=== PATIENT | female | born 1975 | race Caucasian/White ===

== ENCOUNTER 2024-03-17 08:40 | Day surgery (SDC) | payer BC, SELFPAY ==
--- NOTE | 2024-03-14 10:09 | PCM.HP.BLA ---
History and Physical Date of Admission: 03/17/24 Expand All Collapse All Pre-Op History and Physical HPI: The patient is a 48 year old female presenting for pre-operative visit. She is scheduled for LAVH, for fibroids. on 03-17-2024. Procedure discussed along with risks, benefits and complications. Other alternatives discussed for management. Consent form signed? Yes. Started period earlier today. PAST MEDICAL HISTORY PAST MEDICAL HISTORY Diagnosis Date ? Abnormal glandular Papanicolaou smear of cervix abnormal glandular cells- D&C negative ? Asthma ? Bartholin cyst ? Benign neoplasm of colon next scope 2013- 2 polyps ? Circumscribed scleroderma lichens sclerosis ? Lichen sclerosus ? PONV (postoperative nausea and vomiting) ? Unspecified asthma(493.90) PAST SURGICAL HISTORY PAST SURGICAL HISTORY Procedure Laterality Date ? COLONOSCOPY FLX DX W/COLLJ SPEC WHEN PFRMD 11/01/2008 polyps ? DILATION & CURETTAGE DX&/THER NONOBSTETRIC Dilation & curettage x 2 ? PAST SURGICAL HISTORY OF 06/01/2014 Cervical polyp removal. Fractional dilation and curettage, endocervical curetting, and endometrial curetting. Excision of Bartholin cyst on the left. ? SKIN BIOPSY HX CURRENT MEDICATIONS Current Outpatient Medications Medication Sig Dispense Refill ? triamcinolone acetonide (KENALOG) 0.1 % ointment Apply to affected area as directed. pea-sized amount to vulva tid x 2 weeks then BID for 2 weeks then daily for a month then twice weekly 60 g 0 ? albuterol HFA (PROVENTIL HFA, VENTOLIN HFA) 90 mcg/actuation inhaler Inhale 2 Puffs as instructed every 4 hours as needed for wheezing/shortness of breath. 18 g 0 ? tranexamic acid (LYSTEDA) 650 mg tablet Take 2 tablets by mouth three times a day as needed (heavy menstrual bleeding) for up to 5 days. (Patient not taking: Reported on 03/13/2024) 30 tablet 0 No current facility-administered medications for this visit. ALLERGIES: Cats, Dogs, Dust, Iodine, Pantoprazole, Pollen, and Prilosec [Omeprazole Magnesium] PERSONAL HISTORY: SOCIAL HISTORY Social History Tobacco Use ? Smoking status: Never ? Smokeless tobacco: Never Vaping Use ? Vaping Use: Never used Substance Use Topics ? Alcohol use: Yes ? Drug use: No FAMILY HISTORY: FAMILY HISTORY FAMILY HISTORY Problem Relation Age of Onset ? Hypertension Father ? Arthritis Sister Rheumatoid arthritis ? Diabetes Maternal Grandmother REVIEW OF SYMPTOMS: negative except as noted above PHYSICAL EXAMINATION: VITALS: Blood pressure 106/72, pulse 76, resp. rate 16, height 5' 2.25 (1.581 m), weight 129 lb (58.5 kg), last menstrual period 03/13/2024. GENERAL: NECK: Supple. No lynphadenopathy, normal thyroid, no thyromegaly. LUNGS: Clear to auscultation bilaterally. no wheezes, rhonchi or rales HEART: Regular rate and rhythm, Normal heart sounds, and No murmurs or gallops pap and HPV 12/2023- neg EMB 02/15/24- secretory endometrium Pelvic US : Indication Abnormal uterine bleeding Impression anteverted, axial fibroid uterus that measures 94 mm x 70 mm x 69 mm. The largest fibroids are described below. fibroids appear to be intramural and not compressing into the endometrium. 1. Size 36 mm x 35 mm x 34 mm. Anterior, right 2. Size 18 mm x 14 mm x 17 mm. Posterior, left 3. Size 16 mm x 14 mm x 17 mm.. Right lateral anterior wall The central endometrium complex measures 15.9 mm in combined thickness. No abnormal blood flow to suggest a polyp or focal endometrial pathology is observed within the endometrial complex. The contour of the endometrial cavity was normal on 3-D imaging. Both ovaries appear normal no free fluid in the culdesac. Technique: Duplex scan was performed using B-Mode/sweeney scale imaging and Doppler spectral analysis and color flow. Recommendations Follow up as clinically indicated Menstrual History LMP on 01/21/2024 Method Transabdominal, transvaginal, 3D ultrasound examination, Color Doppler examination Uterus Uterus: Visualized Uterus position: anteverted, axial Uterus length 94 mm Uterus width 69 mm Uterus height 70 mm Uterus Vol 235.5 cm? Endometrial thickness, total 15.9 mm Uterine fibroid D1 36 mm Uterine fibroid D2 35 mm Uterine fibroid D3 34 mm Uterine fibroid mean 35.0 mm Uterine fibroid vol 22.431 cm? Uterine fibroids findings: Anterior, right Uterine fibroid D1 18 mm Uterine fibroid D2 14 mm Uterine fibroid D3 17 mm Uterine fibroid mean 16.3 mm Uterine fibroid vol 2.243 cm? Uterine fibroids findings: Posterior, left Uterine fibroid D1 16 mm Uterine fibroid D2 14 mm Uterine fibroid D3 17 mm Uterine fibroid mean 15.7 mm Uterine fibroid vol 1.994 cm? Uterine fibroids findings: Right lateral anterior wall Right Ovary Rt ovary: Visualized Rt ovary D1 31 mm Rt ovary D2 22 mm Rt ovary D3 14 mm Rt ovary Vol 4.7 cm? Left Ovary Lt ovary: Visualized Lt ovary D1 23 mm Lt ovary D2 23 mm Lt ovary D3 24 mm Lt ovary Vol 6.5 cm? Cul de Sac Visualized. no free fluid visualized IMPRESSION: menorrhagia, intramural uterine fibroids and dysmenorrhea PLAN: The risks/benefits/alternatives and personal involved for the planned LAVH with bilateral salpingectomy were reviewed with the patient. Her questions were answered to her satisfaction and she desires to proceed. Consent was signed. I reviewed with her postop instructions and expectations. I have reviewed and updated past medical and surgical history, medications and allergies Assessment & Plan Assessment/Plan (1) Menorrhagia: (2) Dysmenorrhea: (3) Intramural uterine fibroid:
[2024-03-15 13:54] LABS: Hematocrit 37.1 % (37-47); Hemoglobin 11.9 g/dL (12.0-15.0); Mean Corp Hgb Conc 32.1 g/dL (32-36); Mean Corpuscular Hgb 26.3 pg (27.0-32.0); Mean Corpuscular Volume 82.1 fL (81-99); Mean Platelet Vol. 10.1 fl (6.2-12.0); Platelet Count 255 K/mm3 (150-450); RBC Distribution Width CV 14.1 % (11.6-14.6); RBC Distribution Width SD 41.9 fl (35.1-43.9); Red Blood Count 4.52 M/mm3 (4.2-5.4); White Blood Count 6.9 K/mm3 (4.4-11.0)
[2024-03-15 14:14] LABS: Magnesium 2.2 mg/dL (1.6-2.6)
[2024-03-17] VITALS (9 sets, daily range): BP systolic 91–127; BP diastolic 52–87; PULSE 59–78; RESP 14–16; TEMP 36.3–37.2; O2SAT 98–100; BMI 23.9
[2024-03-17] MEDS: Lactated Ringers 1,000 ML 40 ML IV (09:10)
[2024-03-17] MEDS: Magnesium 1 GM over 15 mins IV (09:10)
[2024-03-17] MEDS: Enoxaparin 40 MG/0.4 ML Syringe SC (09:10)
[2024-03-17] MEDS: Scopolamine 1mg/72hr Patch 1 PATCH TD (09:10)
[2024-03-17] MEDS: Acetaminophen 500 MG Tablet 1000 MG PO (09:11)
[2024-03-17] MEDS: Gabapentin 600 MG Tablet PO (09:11)
[2024-03-17] MEDS: Phenazopyridine 95 MG Tablet 190 MG PO (09:12)
[2024-03-17] MEDS: Celecoxib 200 MG Capsule 400 MG PO (09:12)
[2024-03-17 09:50] LABS: Internal QC Validated? YES +Cl - CLEAR BKGD; Pregnancy, Urine Negative Negative; Record Kit Lot#,Urine Preg HCG0000718089
[2024-03-17 10:04] LABS: Bedside Glucose 77 mg/dL (74-106)
--- NOTE | 2024-03-17 10:30 | HYST_PTH ---
PATIENT: NICOLLE OLIVIA [place] [facility] [id number] AGE/SX: 48/F ROOM: RE03/17/[address]: Dr. Magi Zimmer MD : [id number] BED: DIS: 03/17/2024 SPEC #: [id number] RECD: 03/17/24 13:51 STATUS: KELSEY HOPE #: [id number] DANIELLE: 03/17/24 10:[address]: Magi Zimmer DEPT: SURGICAL PATHOLOGY RECD BY: Latosha Macario ENTERED: 03/20/24 08:53 SP TYPE: HYSTERECT OTHR DR: No Primary Care Phys Tissues: Uterus, NOS Procedures: Surgery Specimen Level V HEADER OPERATION: ERAS, hysterectomy, LAVH, bilateral salpingectomy PRE-OP DIAGNOSIS: Menorrhagia, dysmenorrhea, intramural uterine fibroid TISSUE SUBMITTED: Uterus, bilateral fallopian tubes MICROSCOPIC DIAGNOSIS Uterus, hysterectomy: Cervix - Nabothian cysts and minimal chronic inflammation Endometrium - Secretory endometrium Myometrium - Leiomyomas and focal superficial adenomyosis. Right and left fallopian tubes- Benign paratubal cysts. AM/mr 03/21/2024 MICROSCOPIC DESCRIPTION Slides are reviewed. GROSS DESCRIPTION Received in fixative is one container labeled with the patient's name and designated uterus. The specimen consists of a uterus with attached cervix and detached right and left fallopian tubes. The uterus with cervix measures 10.0 x 7.0 x 6.5 cm and weighs 168.7 gm. The ectocervix is unremarkable. The cervical os is oval in contour and free of mass lesions. The endocervical canal measures 3.2 cm in length and is grossly unremarkable. The triangular endometrial cavity measures 3.5 x 3.0 cm. The reddish mercedes endometrium measures up to 0.1 cm in thickness. The myometrium measures 2.2 cm in average thickness and is distorted by multiple rubbery spherical nodules resembling leiomyomas. These range in size from 1.0 to 4.5cm in greatest dimension. The right and left fallopian tubes are similar in appearance with average lengths of 4.5cm in average and 0.5cm in diameter. The other fallopian tube contains a paratubal cyst measuring 0.6cm and containing clear fluid. Wrapper Cashier sections are submitted in cassettes as follows: 1 - anterior cervix, 2 - posterior cervix, 3 & 4 - anterior myometrial wall, 5 & 6 - posterior myometrial wall, 7 - largest myometrial mass, 8 - second largest myometrial mass, 9- third largest myometrial mass, 10- one fallopian tube, 11- other fallopian tube with paratubal cyst AM:mr 03/20/24 TC:1 CPT: 43740
--- NOTE | 2024-03-17 10:37 | PCM.DC ---
Discharge Instructions Diet Discharge Diet: Light diet - advance as tolerated Activity Discharge Activity: May Not Drive (for 5-7 days) and May Shower May resume sexual activity in: 6-8 weeks and - (Nothing in your vagina for 6 weeks. No vaginal or anal intercourse for 6-8 weeks) Dressing / Incision Call your doctor if your incision/area has: Continuous Slow Oozing, Sudden Increased Bleeding, Foul Smelling Discharge and Swelling at the incision site Call your doctor if you observe: Fever of 101 or Higher, Inability to urinate and Using more than 1 pad per hour Cleanse incision/area with: Soap & Water and - (Your incisions have skin glue, it can get wet, leave the glue on until it falls off. ) Follow Up Care Please Follow Up With: Magi Zimmer MD When: With my office in 1-2 and 6 weeks or as needed. [phone] Call or Send a [employer] message as needed Test Results: Test results from this visit will be discussed in further detail at your follow-up appointment, if applicable. Discharge Plan Admission Primary Reason for Your Visit: Hysterectomy Attending Provider: Magi Zimmer Primary Care Provider: Care Physician,Taryn Primary Instructions Print Language: Eritrean Discharge Orders/Prescriptions Prescriptions: New ibuprofen 600 mg tablet 600 mg PO Q6H PRN (Reason: Pain) 30 Days Qty: 60 1RF oxycodone 5 mg tablet 5 mg PO Q6H PRN PRN (Reason: severe pain) 7 Days Qty: 8 0RF Continued albuterol 90 mcg/actuation aerosol 90 mcg inhalation Q4H PRN No Action triamcinolone acetonide 0.1 % ointment 1 applic topical DAILY Disposition Disposition (needs filled in before D/C Order can be placed): Home, Self Care
--- NOTE | 2024-03-17 10:38 | OP.PCM_ITS ---
Problems Associated Problem List Diagnoses (1) Intramural uterine fibroid: (2) Dysmenorrhea: (3) Menorrhagia: Report of Operation Date of Procedure: 03/17/24 Pre-Operative Diagnosis: menorrhagia, dysmenorrhea, intramural uterine fibroids Post-Operative Diagnosis: same Surgery/Procedure Performed:: LAVH, bilateral salpingectomy Description of Surgical Findings:: enlarged boggy uterus, normal cervix and vagina, normal tubes and ovaries. Otherwise unremarkable peritoneal cavity., normal appendix, gallbladder and liver Surgeon: Magi Zimmer physician representative: Ruby Seals physician representative: Fletcher Dewitt [id number] Type of Anesthesia: General Anesthesiologist: Adele Dominguez Special Medications: none Specimen's removed: uterus, cervix, bilateral fallopian tubes Drains: none Estimated Blood Loss (mL): 30 Fluids Replaced: 1300 Description of Procedure: The patient was taken to the operating room where she was prepped and draped in the dorsal lithotomy position. Her arms were tucked to the side and padded and her legs were placed in the yellowfin stirrups. Care was taken to ensure that she was placed in a neurologically safe and neutral position. A weighted speculum was placed in the vagina and the anterior lip of the cervix was grasped with a single-tooth tenaculum. The uterus sounded to 10 centimeters. The 3 cm uterine granite installer uterine manipulator was placed and secured. The Bishop catheter was placed to straight drain. Attention was turned to the abdominal portion of the case. Before skin incisions were made they were infiltrated with 0.5% Marcaine solution for local anesthetic. A 5 mm intraumbilical incision was made and while tenting the anterior abdominal wall up with towel clamps a 5 mm blade less trocar and sleeve were advanced directly into the peritoneal cavity. Peritoneal placement was confirmed with the laparoscope the pneumoperitoneum was created, and the under lying abdominal contents were intact. The patient was placed in Trendelenburg and the above findings were noted. Right and left lateral 5 mm trochars were placed under direct visualization without difficulty. [The antimesenteric portion of the tube was clamped sealed and transected serially on both sides with the LigaSure device.] The round ligaments were clamped sealed and transected and a window was made in the peritoneum. The utero-ovarian ligaments were then clamped, sealed and transected with the LigaSure device and the pedicles were hemostatic The bladder flap was dissected down with the LigaSure device and blunt dissection and the uterine arteries were then skeletonized. The uterine arteries were clamped, sealed and transected on both sides with the LigaSure device. At this point the pedicles were all examined and found to be hemostatic. Attention was turned to the vaginal portion of the case. 1% lidocaine with dilute epinephrine solution was used to infiltrate the vaginal epithelium around the cervix. An incision was made around the entire cervix. The anterior colpotomy incision was made with blunt and sharp dissection. The posterior peritoneum was entered with sharp dissection and the posterior peritoneum was secured to the posterior vaginal epithelium and a swan-neck weighted speculum was placed in the posterior cul-de-sac. The uterosacral ligaments were clamped, transected and suture-ligated. The remaining portion of the cardinal ligaments were clamped, transected and suture-ligated and excellent hemostasis was noted. The uterus was free and brought through the vagina intact.. At this point, the pedicles were all examined and hemostasis was assured. A 2- 0 PDS suture was placed to the posterior cul-de-sac into the peritoneum and reefed across the posterior peritoneum to the right uterosacral ligament back across to the left uterosacral ligament and then across the parous posterior peritoneum through the vagina. The vaginal cuff was then closed in a horizontal fashion with 0 Vicryl [id number] sutures. The PDS suture was then tied down in the midline. Excellent hemostasis was noted and a sponge stick was placed in the vagina. The Bishop was left to straight drain. The laparoscope was reinserted into the abdomen and the pneumoperitoneum was re- created. The pedicles were reexamined and found to be hemostatic. The vaginal cuff was hemostatic. Hemoblast was placed over the peritoneal edges and no active bleeding was noted. The right and left lateral ports were taken out and the sites were hemostatic. The pneumoperitoneum was released and even under low pressure there was no bleeding of any of the pedicles are vaginal cuff. The umbilical port was removed. The umbilical skin incisions were closed with Monocryl suture and skin glue by by me. The vaginal instruments were removed by me and a vaginal sweep was completed by me. The Bishop catheter was removed. The surgery was performed by me with assistance other than the portions dictated as above. There were no qualified residents available for this procedure. All sponge lap and needle counts were correct and the patient was transferred to the recovery room in stable condition. Dr. Seals provided camera guidance, tissue manipulation and assistance with suturing during the procedure. Grafts/Implants Used: none Procedure Start Time: 11:16 Procedure Stop Time: 12:37 Complications none Admit VTE Documentation VTE Present on Admission: No VTE Mechan Device Prophylaxis: SCD's VTE Pharm Prophylaxis ordered?: Yes
[2024-03-17] MEDS: Cefazolin 2 GM in 0.9% Normal Saline (100mL Bag) 100 ML IV (11:00)
[2024-03-17] MEDS: dexAMETHasone 4 MG/ML Vial 8 MG IV (11:00)
[2024-03-17] MEDS: Lidocaine 1%/Epi 1:200 (30ml) 30 ML AMPUL (12:12)
[2024-03-17] MEDS: Bupivacaine Mpf 0.5% 30 ML VIAL (12:13)
[2024-03-17] MEDS: Ketorolac 30 MG/ML Syringe IV (14:01)
[2024-03-17] MEDS: Acetaminophen 325 MG Tablet 650 MG PO (14:21)
== END 2024-03-17 16:45 | disposition home or self-care (01) ==
LOC: SDC 08:41 → AC 08:41
PROVIDERS: Referring Provider Obstetrics & Gynecology; Visit Provider Obstetrics & Gynecology
PROC: 0UT9FZZ Resection of Uterus, Via Natural or Artificial Opening With Percutaneous Endoscopic Assistance (ICD-10-PCS; CPT 58552; principal; 2024-03-17 10:05)
DX: D25.1 Intramural leiomyoma of uterus (principal); N92.0 Excessive and frequent menstruation with regular cycle; N94.6 Dysmenorrhea, unspecified; N88.8 Other specified noninflammatory disorders of cervix uteri; J45.909 Unspecified asthma, uncomplicated; N83.8 Other noninflammatory disorders of ovary, fallopian tube and broad ligament; Z79.51 Long term (current) use of inhaled steroids
CPT/HCPCS: 58552; 00840; 36415; 81025; 82962; 83735; 85027; 86850; 86900; 86901; 88307; J7120; J2405; J3475